=== PATIENT | male | born 2000 | race Caucasian/White ===

== ENCOUNTER 2018-08-13 20:42 | Inpatient (IN) ==
[2018-08-13] MEDS ORDERED: *HR* LORazepam 2 MG/ML VIAL ONE ×2 (20:46→21:00)
[2018-08-13] MEDS ORDERED: *HR* LORazepam 2 MG/ML VIAL IM ONE (20:59)
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
[2018-08-13 21:45] LABS: Bilirubin,Urine Negative (Negative); Blood,Urine Negative (Negative); Clarity,Urine Clear (Clear); Color,Urine Yellow (Yellow); Glucose,Urine (UA) Normal (Normal); Ketones,Urine Negative (Negative); Leukocyte Esterase,Urine Negative (Negative); Nitrite,Urine Negative (Negative); PH,Urine 6.5 pH Units (5.0-8.0); Protein,Urine Negative (Neg-Trace); Specific Gravity,Urine 1.013 (1.010-1.025); Urobilinogen,Urine Normal (Normal)
[2018-08-13 22:02] LABS: Amphetamine Screen,Urine Negative ng/mL (Cutoff=1000); Barbiturate Screen,Urine Negative ng/mL (Cutoff=200); Benzodiazepines Screen,Urine Negative ng/mL (Cutoff=200); Cannabinoid Screen,Urine Negative ng/mL (Cutoff = 50); Cocaine Screen,Urine Negative ng/mL (Cutoff= 300); Opiate Screen,Urine Negative ng/mL (Cutoff=300); Phencyclidine Screen,Urine Negative ng/mL (Cutoff=25)
[2018-08-14] MEDS ORDERED: Nicotine 14 MG PATCH.TD24 TD ONE (06:52)
--- NOTE | 2018-08-14 07:21 | Emergency Department Note ---
Disposition Clinical Impression: Suicidal ideation Alcohol intoxication Qualifiers: Complication of substance-induced condition: uncomplicated Qualified Code(s): F10.920 - Alcohol use, unspecified with intoxication, uncomplicated Depression Qualifiers: Depression Type: unspecified Qualified Code(s): F32.9 - Major depressive disorder, single episode, unspecified Disposition: Still a Patient Referrals: NONE,PCP [Primary Care Provider] - General Adult HPI - General Chief complaint: ED Psychiatric Symptoms Stated complaint: Psych Time Seen by Provider: 08/13/18 20:58 Source: patient, EMS Mode of arrival: EMS Limitations: altered mental status - History of Present Illness Pain Scale: 0 - Related Data Home Medications Medication Instructions Recorded Confirmed No Known Home Drugs 08/13/18 08/13/18 Allergies Allergy/AdvReac Type Severity Reaction Status Date / Time No Known Allergies Allergy Verified 01/15/18 15:06 Past Medical History - Past Medical History Medical history: Reports: no medical history Psychiatric history: Reports: no psych history - Social History Smoking Status: Current every day smoker Smokeless Tobacco Status: No Alcohol use: Reports: occasionally Drug use: Reports: methamphetamine Physical Exam - General Limitations: altered mental status General appearance: other (Sedated secondary to medications), restraints present Course Vital Signs Temperature 97.6 F 08/13/18 20:45 Pulse Rate 88 08/13/18 20:45 Respiratory Rate 15 08/13/18 20:45 Blood Pressure 139/86 08/13/18 20:45 O2 Sat by Pulse Oximetry 98 08/13/18 20:45 Temperature 97.6 F 08/13/18 20:59 Pulse Rate 81 08/14/18 06:18 Respiratory Rate 18 08/14/18 06:18 Blood Pressure 121/81 08/14/18 06:18 O2 Sat by Pulse Oximetry 90 08/14/18 06:18 Oxygen Delivery Oxygen Delivery Room Air Medical Decision Making - Lab Data Lab Results 08/13/18 08/13/18 08/14/18 Range/Units 21:19 21:19 06:20 Urine Color Yellow (Yellow) Urine Clarity Clear (Clear) Urine pH 6.5 (5.0-8.0) pH Units Ur Specific [place] 1.013 (1.010-1.025) Urine Protein Negative (Neg-Trace) mg/dL Urine Glucose (UA) Normal (Normal) mg/dL Urine Ketones Negative (Negative) mg/dL Urine Blood Negative (Negative) Urine Nitrite Negative (Negative) Urine Bilirubin Negative (Negative) Urine Urobilinogen Normal (Normal) mg/dL Ur Leukocyte Esterase Negative (Negative) Urine Opiates Screen Negative (Xpamwp=182) ng/mL Ur Barbiturates Screen Negative (Unztlh=272) ng/mL Ur Phencyclidine Scrn Negative (Cutoff=25) ng/mL Ur Amphetamines Screen Negative (Tuptlr=2126) ng/mL U Benzodiazepines Scrn Negative (Hmhesd=373) ng/mL Urine Cocaine Screen Negative (Cutoff= 300) ng/mL U Marijuana (THC) Screen Negative (Cutoff = 50) ng/mL Ur Drug Screen Interp See Below Ethyl Alcohol 141 H (Less than 10) mg/dL Attestation Statement - Attestation Attestation: Care of patient assumed from Dr. Peres at 7 AM pending repeat alcohol level. The patient presented with concerns for suicidal ideation. He was intoxicated. He is calm and compliant at the time of my evaluation. Blood alcohol level remains above the threshold and will require delta repeat measurement
[2018-08-14] MEDS ORDERED: Nicotine 14 MG PATCH.TD24 TD SCH (09:00)
[2018-08-14] MEDS ORDERED: Mag Hydrox/Al Hydrox/Simeth 30 ML UDC PO PRN (13:12)
[2018-08-14] MEDS ORDERED: *HR* LORazepam 2 MG/ML VIAL IM PRN (13:12)
[2018-08-14] MEDS ORDERED: MOM Conc 10 ML UD.LIQ PO PRN (13:12)
[2018-08-14] MEDS ORDERED: Haloperidol Lactate 5 MG/ML VIAL IM PRN (13:12)
[2018-08-14] MEDS ORDERED: Ibuprofen 400 MG TABLET PO PRN (13:12)
[2018-08-14] MEDS ORDERED: hydrOXYzine pamoate 25 MG CAPSULE PO PRN (13:12)
[2018-08-14] MEDS ORDERED: *HR* LORazepam 1 MG TABLET PO PRN (13:12)
[2018-08-14] MEDS: Nicotine 2 MG GUM BC PRN ×3 (14:45→21:02)
--- NOTE | 2018-08-14 19:17 | Electrocardiograph Report ---
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
[2018-08-14] MEDS: traZODone 50 MG TABLET PO PRN (21:02)
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
[2018-08-15] MEDS: Nicotine 2 MG GUM BC PRN ×6 (08:37→22:54)
[2018-08-15] MEDS: traZODone 50 MG TABLET PO PRN (21:22)
[2018-08-16 08:38] VITALS: BP 124/78
--- NOTE | 2018-08-16 08:42 | Discharge Summary ---
Date of Encounter: 08/16/18 Time of Encounter: 08:40 Diagnosis - Discharge Diagnosis (1) Depression Status: Acute Qualifiers: Depression Type: major depressive disorder Major depression recurrence: r ecurrent Active/Remission status: currently active Major depression episode severity: severe Psychotic features: without psychotic features Qualified Code(s): F33.2 - Major depressive disorder, recurrent severe without psychotic features Medications - Discharge Medications Prescriptions: Escitalopram [Lexapro] 5 mg PO DAILY #15 tablet hydrOXYzine pamoate [HydrOXYzine Pamoate] 25 mg PO TID PRN #45 capsule PRN Reason: Anxiety Prazosin [Minipress] 1 mg PO HS #15 capsule traZODone [TraZODone] 50 mg PO HS PRN #15 tablet PRN Reason: Insomnia Escitalopram [Lexapro] 5 mg PO DAILY #15 tablet 08/16/18 [Rx] Prazosin [Minipress] 1 mg PO HS #15 capsule 08/16/18 [Rx] hydrOXYzine pamoate [HydrOXYzine Pamoate] 25 mg PO TID PRN #45 capsule 08/16/18 [Rx] traZODone [TraZODone] 50 mg PO HS PRN #15 tablet 08/16/18 [Rx] Allergy/AdvReac Type Severity Reaction Status Date / Time No Known Allergies Allergy Verified 08/15/18 09:07 Results Procedures and tests throughout hospitalization: Completed Lab Orders Category Date Time Status Blood Alcohol [Ethanol] Stat Lab 08/14/18 10:08 Completed Drug Screen, Urine [UCHEM] Stat Lab 08/13/18 21:19 Completed Ethanol Stat Lab 08/14/18 06:20 Completed Urinalysis reflex Microscopic [URIN] Stat Lab 08/13/18 21:19 Completed Provider Date of admission: 08/14/18 12:33 Primary care physician: PCP NONE Discharging clinician: Kyleigh Mariano Psychiatry Exam - Constitutional Vitals: Temp Pulse Resp BP Pulse Ox 98.4 F 132 18 124/78 96 08/16/18 08:38 08/16/18 08:38 08/16/18 08:38 08/16/18 08:38 08/16/18 08:38 General appearance: age & developmentally appropriate, well-groomed, well- nourished - Musculoskeletal Gait: normal Station: relaxed Strength & Tone: normal for patient - Psychiatric Patient Orientation: Yes Person, Yes Time, Yes Place Level of alertness: Alert Behavior: calm, cooperative Psychomotor activity: Normal Eye Contact: Maintains Eye Contact Mood Description: Euthymic/stable Affect description: congruent with mood, full range Speech Volume: Normal Speech pattern: normal rate, normal rhythm, normal tone, fluent, spontaneous Language & Vocabulary: consistent with education Thought Process: Linear, Goal Oriented Thought Content: No Suicidal ideation, No Homicidal ideation, No Overt delusions Perceptual Disturbances: No Auditory hallucinations, No Visual hallucinations Attention Span Ability: Capable of Focused Attention Memory Description: Grossly Intact Patient Reliability: Reliable Historian Fund of knowledge: Yes abstraction ability, Yes aware of current events Intelligence Estimate: Average Judgment: Good Insight: Full Hospital Course Hospital course: Mr. Goddard is a 18 year old male who had a disagreement with his girlfriend because she left without saying goodbye and triggered his abandnment issues. He then drank excessively and when the police came for a well check threatened suicide by copy supervisor. Once he was sober he regretted this and denied SI and was future oriented. He did endorse depression and PTSD symptoms and was started on prazosin and lexapro for this. Patient was educated of diagnosis and the risk- benefit side effects of this alternative treatment options and was monitored for responsiveness and side effects. Mood anxiety sleep and appetite interest improved as did future orientation. Self-harm thoughts subsided, thinking cleared, psychosis resolved, and mood stabilized. Patient was able to attend both individual and group therapy sessions as well as meet with the psychiatrist daily and urged to discuss any medication or treatment issues or other concerns. The patient was educated primarily by verbal means about their diagnosis and manifestations in their life. The option for treatment including group and individual therapy programming was offered to the patient in addition to the use of medications with all their potential risks, benefits, and side effects as well as the risks of not taking medication and non-adhereance were discussed with the patient at length. The patient was given the opportunity to ask questions and was noted to participate in the treatment in the planning process. The patient felt ready and eager to be discharged from the inpatient psychiatric unit to continue on with treatment as an outpatient. The patient agreed that is they were safe for this disposition. The patient was considered to be able to participate in informed consent and decision making with respect to medical, legal, and financial issues of the time of discharge. At the time of discharge the patient adamantly denied any concerns for lethality including suicidal or homicidal thoughts ideations or plans and was future oriented toward ongoing mental health care, medical follow-up and sobriety. Time spent discussing smoking cessation with patient: 3 to 10 minutes Does patient wish to continue nicotine replacement upon disc: No - Time Spent with Patient Total time spent providing and/or coordinating discharge services: 25 Less than 30 minutes Specific discharge activities: Interval history reviewed. Available labs reviewed . Psychotherapy provided. Patient had an opportunity to ask questions and address concerns. Patient was in agreement with the treatment plan. The risks benefits and side effects of medications were discussed with the patient, including alternatives and treatment. The patient was educated on the abstaining from any alcohol or illicit substances, following up with all scheduled appointments, and taking all medications as prescribed. The patient was educated on 90 meetings in 90 days and to find a sponsor. Assessment and Plan - Patient/Caregiver Discharge Instructions Activity: resume usual activities as tolerated Diet: regular diet Additional Instructions: Continue current medications. Follow up with outpatient mental health. Encourage continued therapy in a group or individual setting. The patient was discharged to home. - Follow up Plan Follow up with: NONE,PCP [Primary Care Provider] - Functional capacity at discharge: independent ambulation Overall status at discharge: Stable Disposition: Home, Self-Care Quality - Multiple Antipsychotics Patient discharged on 2 or more antipsychotic medications: No Procedures - Procedures Procedures: Medication Management, Crisis Stabilization, Supportive Therapy, Group Therapy, Psychoeducational Therapy
[2018-08-16] MEDS: Nicotine 2 MG GUM BC PRN (10:06)
--- NOTE | 2018-08-17 10:05 | Electrocardiograph Report ---
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
== END 2018-08-16 10:30 | disposition home or self-care (01) | DRG 751 ==
LOC: EMEROOARM 20:42 → 1ANU 08-14 12:33
PROVIDERS: ADMIT Psychiatry & Neurology Psychiatry; ATTEND Psychiatry & Neurology Psychiatry